=== PATIENT | male | born 1960 | race Two or more races ===

== ENCOUNTER 2024-05-30 20:18 | Inpatient (IN) | payer OTHER ==
[~2024-05-30] VITALS: Ht 172.7 cm; Wt 77.3 kg
[2024-05-30 23:10] LABS: BASOPHILS % (AUTO) 0.5 % (0.0-2.0); EOSINOPHILS % (AUTO) 2.9 % (1.0-6.0); HEMATOCRIT 37.7 % (41-53); HEMOGLOBIN 12.9 g/dL (13.5-17.5); LYMPHOCYTES # (AUTO) 1.8 K/uL (1.0-4.8); MEAN CORPUSCULAR HEMOGLOBIN 30.7 pg (26.0-34.0); MEAN CORPUSCULAR HGB CONC 34.2 G/dL (31.0-37.0); MEAN CORPUSCULAR VOLUME 90 fL (80-100); MONOCYTES # (AUTO) 0.6 K/uL (0.1-1.0); MONOCYTES % (AUTO) 9.7 % (2.0-9.0); NEUTROPHILS # (AUTO) 3.6 K/uL (1.8-7.7); NEUTROPHILS % (AUTO) 57.9 % (40.0-70.0); PLATELET COUNT (AUTO) 351 K/uL (150-450); RED BLOOD CELL COUNT(AUTO) 4.21 MIL/uL (4.50-5.90); RED CELL DISTRIBUTION WIDTH 12.3 % (11.5-14.5); WHITE BLOOD COUNT (AUTO) 6.3 K/uL (4.5-11.0)
[2024-05-30 23:24] LABS: ANION GAP 9 mmol/L (8-16); CALCIUM, TOTAL 8.4 mg/dL (8.8-10.5); CARBON DIOXIDE 27 mmol/L (22-29); CHLORIDE 104 mmol/L (98-107); CREATININE 0.74 mg/dL (0.60-1.30); GLOMERULAR FILTR. RATE CALC > 60 mL/min (>60); GLUCOSE,RANDOM 94 mg/dL (70-110); POTASSIUM 4.1 mmol/L (3.5-5.1); SODIUM SERUM 139 mmol/L (136-145); UREA NITROGEN, BLOOD 18 mg/dL (7-18)
[2024-05-30 23:28] LABS: PROTHROMBIN TIME 11.4 SEC (9.4-11.6)
[2024-05-31] MEDS ORDERED: ACETAMINOPHEN 325 MG TABLET PO PRN
[2024-05-31] MEDS ORDERED: BISACODYL 10 MG RECTAL RECTAL SUPPOSITORY PR PRN
[2024-05-31] MEDS ORDERED: IPRATROPIUM BROMIDE 0.5 MG/2.5 ML NEB SOLUTION NEB PRN
[2024-05-31] MEDS ORDERED: ONDANSETRON HCL 4 MG/2 ML VIAL IVP PRN
[2024-05-31] MEDS ORDERED: ALBUTEROL SULFATE 2.5 MG/0.5 ML NEB SOLUTION NEB PRN
[2024-05-31] MEDS ORDERED: ZOLPIDEM TARTRATE 5 MG TABLET PO PRN
[2024-05-31] MEDS ORDERED: MAGNESIUM HYDROXIDE SUSPENSION 30 ML UDCUP PO PRN
[2024-05-31] MEDS: MORPHINE SULFATE 2 MG/ML SYRINGE IVP PRN (03:58)
[2024-05-31 04:50] VITALS: BP 105/49; PULSE 60; RESP 18; TEMP 98.5; O2SAT 96
[2024-05-31] MEDS: HYDROCODONE/ACETAMINOPHEN 5-325 MG TABLET PO PRN (05:50)
[2024-05-31 08:07] VITALS: BP 97/55; PULSE 53; RESP 18; TEMP 97.7; O2SAT 98
[2024-05-31] MEDS: PANTOPRAZOLE SODIUM 40 MG DR TABLET PO SCH (08:26)
[2024-05-31] MEDS: RIVAROXABAN 15 MG TABLET PO ONE (13:34)
[2024-05-31] MEDS: HydrOXYzine HCL 50 MG TABLET PO ONE (14:09)
[2024-05-31] MEDS ORDERED: PANT-31 PO (14:55)
[2024-05-31] MEDS ORDERED: AMMO225L14 TP (14:55)
[2024-05-31] MEDS ORDERED: RIVA15TA PO (14:55)
[2024-05-31] MEDS ORDERED: ACET-2247 PO (14:56)
[2024-05-31] MEDS: RIVAROXABAN 15 MG TABLET PO SCH (18:01)
[2024-05-31] MEDS ORDERED: AMMONIUM LACTATE 12% 225 GM LOTION TP SCH (21:00)
== END 2024-05-31 19:59 | DRG 556 ==
LOC: EMS 20:18 → EDH 05-31 00:23 → 6S 05-31 02:00
PROVIDERS: ADMIT Hospitalist; ATTEND Hospitalist
DX: M79.605 Pain in left leg (principal); I82.512 Chronic embolism and thrombosis of left femoral vein; I82.591 Chronic embolism and thrombosis of other specified deep vein of right lower extremity; M79.604 Pain in right leg; F41.9 Anxiety disorder, unspecified; Z79.01 Long term (current) use of anticoagulants; Z86.711 Personal history of pulmonary embolism; Z87.891 Personal history of nicotine dependence; Z85.47 Personal history of malignant neoplasm of testis
CPT/HCPCS: 71101; 80048; 85025; 85610; 85730; 93970; 99285; J2270